=== PATIENT | male | born 1980 | race Caucasian/White ===

== ENCOUNTER 2017-06-04 12:12 | Emergency (ER) | payer OTHER ==
[~2017-06-04] VITALS: Ht 177.8 cm; Wt 154.2 kg
[~2017-06-04 12:12] MED LIST: DULCOLAX5 MG PO; DUONEB 3 MG/3 ML3 M1 INH; LEVOFLOXACIN500 MG PO; MEDROL DOSEPAK4 MG PO; PERCOCET 325 MG1 TA5 PO; PHENERGAN W/DM120 ML PO; ZITHROMAX Z PA250 MG PO
[2017-06-04 13:11] LABS: BASO % 0.3 % (0.0-1.0); EOS % 0.3 % (1.0-4.0); HEMATOCRIT 44.6 % (42.0-52.0); HEMOGLOBIN 14.6 g/dl (14.0-18.0); LYMPH # 1.5 10*3/uL (1.3-4.4); LYMPH % 10.8 % (27.0-41.0); MEAN CELL VOLUME 80.8 fl (80.0-94.0); MEAN CORPUSCULAR HGB 26.4 pg (27.0-31.0); MEAN CORPUSCULAR HGB CONC 32.7 g/dl (33.0-37.0); MEAN PLATELET VOLUME 10.1 fl (9.6-12.3); MONO # 0.7 10*3/uL (0.1-1.0); MONO % 4.8 % (3.0-9.0); NEUT # 11.5 10*3/uL (2.3-7.9); NEUT % 83.6 % (47.0-73.0); PLATELET COUNT AUTOMATED 300 10*3/uL (130-400); RED BLOOD COUNT 5.52 10*6/uL (4.50-5.90); RED CELL DISTRI WIDTH 14.1 % (0-14.5); WHITE BLOOD COUNT 13.7 10*3/uL (4.8-10.8)
[2017-06-04 13:26] LABS: ALBUMIN 3.6 gm/dl (3.1-4.5); ALKALINE PHOSPHATASE 88 U/L (45-117); BILIRUBIN, TOTAL 0.5 mg/dl (0.2-1.0); BUN 19 mg/dl (7-24); CARBON DIOXIDE 28 mmol/L (21-32); CHLORIDE 104 mmol/L (98-107); EST GLOM FILT AFRICAN AMERICAN > 60 ml/min; GLUCOSE 134 mg/dL (65-99); SGOT/AST 12 IU/L (3-35); SGPT/ALT 26 U/L (12-78); SODIUM 138 mmol/L (136-145); TOTAL PROTEIN 6.9 gm/dL (6.4-8.2)
[2017-06-04] MEDS ORDERED: BACTRIM DS 8001 TA1 PO (14:22)
[2017-06-04] MEDS ORDERED: PERCOCET 325 MG1 TA2 PO (14:22)
[2017-06-04] MEDS ORDERED: ZOFRAN4 MG PO (14:22)
[2017-06-04] MEDS ORDERED: FLOMAX0.4 MG PO (14:22)
[2017-06-04 14:40] LABS: BILIRUBIN NEGATIVE (NEGATIVE); BLOOD NEGATIVE (NEGATIVE); CLARITY CLEAR (CLEAR); COLOR YELLOW (YELLOW); GLUCOSE NEGATIVE (NEGATIVE); KETONE NEGATIVE (NEGATIVE); LEUKO ESTERASE NEGATIVE (NEGATIVE); NITRITE NEGATIVE (NEGATIVE); PH 5.5 (5.0-9.0); PROTEIN NEGATIVE (NEGATIVE); SPECIFIC GRAVITY 1.025 (1.005-1.030); UROBILINOGEN 0.2 E.U./dl (0.2-1.0)
[2017-06-04 14:46] LABS: WBC 0-2 wbc/hpf (0-5)
== END 2017-06-04 14:49 | disposition home or self-care (01) ==
LOC: ED 12:12
PROVIDERS: Nurse Practitioner Family
DX: N20.0 Calculus of kidney (principal); N13.30 Unspecified hydronephrosis; R03.0 Elevated blood-pressure reading, without diagnosis of hypertension; Z90.49 Acquired absence of other specified parts of digestive tract

== ENCOUNTER 2025-11-17 14:35 | Emergency (ER) | payer OTHER ==
[~2025-11-17] VITALS: Ht 180.3 cm; Wt 104.3 kg
[~2025-11-17 14:35] MED LIST changes: +BACTRIM DS 8001 TA1 PO; +FLOMAX0.4 MG PO; +PERCOCET 325 MG1 TA2 PO; +ZOFRAN4 MG PO
[2025-11-17] MEDS ORDERED: Ondansetron Hydrochloride 4 MG/2 ML VIAL IV ONE (15:20)
[2025-11-17] MEDS ORDERED: Lidocaine Hydrochloride 2% 10 ML AMP SC ONE (16:50)
[2025-11-17] MEDS ORDERED: CEPHALEXIN500 M1 PO (17:04)
[2025-11-17] MEDS ORDERED: Tdap Vaccine 0.5 ML SYR (Adult Vaccine) IM ONE (17:05)
== END 2025-11-17 17:38 | disposition home or self-care (01) ==
LOC: ED 14:35
DX: S62.617A Displaced fracture of proximal phalanx of left little finger, initial encounter for closed fracture (principal); S61.412A Laceration without foreign body of left hand, initial encounter; Z90.49 Acquired absence of other specified parts of digestive tract; Y93.L1 Activity, splitting wood; Y93.89 Activity, other specified; Y92.89 Other specified places as the place of occurrence of the external cause; Y99.8 Other external cause status